=== PATIENT | female | born 2000 | race Caucasian/White ===

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

== ENCOUNTER → 2020-03-01 09:46 | Outpatient (CLI) | payer OTHER, SELFPAY | PROVIDERS: PCP Pediatrics; Referring Provider Pediatrics; Visit Provider Pediatrics | DX: Z20.828 Contact with and (suspected) exposure to other viral communicable diseases (principal); J02.9 Acute pharyngitis, unspecified | CPT/HCPCS: 87635; 94799; U0003 ==

== ENCOUNTER 2022-04-22 08:00 | Outpatient (RCR) | payer OTHER, SELFPAY ==
--- NOTE | 2022-04-22 09:05 | BH.SGPN.GN ---
Behaviors/Verbalizations/Mental Status: []Pt alert and oriented, neatly dressed and groomed. Eye contact good. Motor activity appropriate. Speech within normal limits. Affect constricted, mood anxious. Thoughts linear, logical, no signs of hallucinations or delusions. Reviewed pt?s symptom tracker, no risk for suicidal ideation, plan, or intent as of 04/22/22 Client Response/Progress/Benefit: []Pt responded well to session, providing feedback. Pt reports feeling nervous this morning as it is her first day of IOP tx. Pt shared being in group is both a win and a stressor as pt wants to work on reducing her anxiety and getting back into her daily functioning. Pt shared she also wants to improve her boundary setting and increase confidence. Pt receptive of support from peers and encouragement about IOP. Pt appeared to benefit from connecting with peers. Pt will continue IOP tx to prevent decompensation, gain healthy coping skills, and improve daily functioning. Narrative Note: []
--- NOTE | 2022-04-22 10:10 | BH.SGPN.GN ---
Behaviors/Verbalizations/Mental Status: [] Eye contact is good. Motor activity is appropriate. Appearance is casual. Speech is Appropriate. Mood is anxious. Affect is congruent. Thoughts are linear and logical. No evidence of psychosis. Client Response/Progress/Benefit: [] Pt participated when prompted. Attentive during psychoeducation AEB note-taking. Attentive during interactive discussion amongst peers on the definition and examples of crisis. Attentive as peers identified unhealthy responses to crisis which included; substance use, avoidance, isolation, sleeping, risky behaviors, retail therapy, over-eating, etc. Pt identified her snehal signs to crisis as well. Benefited from increased of crisis and personal warning signs. Will continue in IOP to prevent decompensation, increase healthy coping, and improve functioning. Narrative Note: []
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
--- NOTE | 2022-04-22 11:10 | BH.SGPN.GN ---
Behaviors/Verbalizations/Mental Status: []Pt alert and oriented, casually dressed and appropriately groomed. Eye contact good. Motor activity appropriate. Speech within normal limits. Affect constricted, mood anxious. Thoughts linear, logical, no signs of hallucinations or delusions. Client Response/Progress/Benefit: []Pt responded well to session as evidenced by Pt listening attentively to others and providing strategies during discussion.? Pt identified personal warning signs for crisis and gained further awareness of earliest warning signs. Pt created a crisis action plan to help better manage warning signs for crisis. Pt able to create action plan for warning sign of irritability. Pt's action plan included: going back to see why she's irritable, breathing, self-care, and communicate to supports how she is feeling. Pt appeared to benefit from creating a crisis action plan and increasing self-awareness. Pt will continue IOP tx to improve emotion regulation, increase healthy coping and prevent decompensation.
[2022-04-22 12:03] VITALS: BP 127/74; PULSE 60
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
--- NOTE | 2022-04-22 12:32 | BH.DR.ITP ---
Initial Treatment Plan Patient Information Visit Information: ADMISSION DATE: EXPECTED LOS: 4-6 weeks Problems/Symptoms Problem #1:: Depression Symptom:: Sadness, worthlessness, hopelessness, hypersomnia, low energy, fatigue, decreased concentration, passive thoughts of , fleeting passive suicidal ideation, recent self-harm Problem #2:: Anxiety Symptom:: Worry, rumination, panic attacks, avoidance
--- NOTE | 2022-04-23 09:00 | BH.SGPN.GN ---
Behaviors/Verbalizations/Mental Status: [] Pt eye contact good, casually dressed, motor activity appropriate, speech normal rate and tone, mood euthymic, congruent affect, thoughts linear and intact, no evidence of delusions or hallucinations. Patient's symptom tracker does not indicate any suicidal ideation, plan, or intent. Client Response/Progress/Benefit: []Pt responded well to session AEB listening attentively to others and sharing thoughts and feelings. Patient reported mental positive as a new album for Batsheva Rosas was released today which has been helpful to improve her mood. Client identified additional mental positive as having less stress at work due to managing her emotions and thoughts more effectively. Client stated current stressor is having to take care of the animals at her aunt and uncle's house because they are on vacation. Seemed to benefit from support from peers. Client to continue IOP to continue using skills to manage anxiety, challenge negative thought patterns, and prevent decompensation. Narrative Note: []
--- NOTE | 2022-04-23 10:05 | BH.SGPN.GN ---
Behaviors/Verbalizations/Mental Status: []Pt alert and oriented, casually dressed and groomed. Eye contact good. Motor activity appropriate. Speech within normal limits. Affect constricted, mood anxious. Thoughts linear, logical, no signs of hallucinations or delusions. Client Response/Progress/Benefit: []Pt new to IOP tx. Participated during the group discussion and remaining attentive during psychoeducation. Participated in experiential activity. Pt remaining attentive during interactive discussion on the consequences of unhealthy expression of emotions.? Worked with group to identify several consequences which included pushing people away, ?exploding,? and not getting needs met. Contributing during interactive discussion on common potholes to effectively communicating. Pt identified personal ones such as communicating emotions over text. Pt was able to relate and make connections between the experiential activity and the overall topic, reported experiencing anxiety and excitement, but managing it well. Benefited from increased awareness of how stress and emotions can impact one's ability to communicate. Will continue in IOP to manage sx of anxiety, continue to improve overall functioning, and prevent decompensation. Narrative Note: []
--- NOTE | 2022-04-23 13:47 | BH.MTP ---
Master Treatment Plan - Patient Information Program Physician:: Dr. Hutchinson Primary Therapist:: Karolina Duggan, [facility] - Psychiatric Diagnoses Psychiatric Diagnoses:: 1. Major depressive disorder, recurrent, severe without psychosis (F33.2). 2. Generalized anxiety disorder. 3. ADHD Diagnosis Code(s):: F33.2 - Estimated LOS Estimated LOS (in weeks):: 6 Problem/Goal #1 - Problem/Goal #1 Stated Goal:: Client will decrease depressive symptoms, isolation, and agitation due to Major Depressive Disorder through Intensive Outpatient Program. Description of Barriers: Potential barriers to treatment include negative thinking, high expectations of self, distorted thoughts, and social anxiety. Functional Impact: The patient is a 21-year-old single female with a history of depression, anxiety, PTSD and ADHD who referred herself to the [facility] behavioral health IOP program for worsening symptoms of anxiety and depression. She wants to get FMLA off from her job so she can participate more fully in the IOP program. Endorses significant social anxiety which makes it difficult to go in public and or talk to others. Endorses depressed mood with crying episodes, anhedonia, increased sleep, low energy, decreased concentration, and feelings of hopelessness and worthlessness. Hx of self-harm, last cut one month ago. MH symptoms were interfering with pt?s ability to get to work on time. - Objectives Objective #1 Stated Objective: Client will learn and utilize 2-3 healthy coping strategies to manage depressive symptoms. Interventions: Therapist will utilize CBT techniques to assist client with understanding the connection between thoughts, feelings and behaviors. Education will be provided on behavioral activation. Therapist will assist client in learning internal coping strategies to manage depressive symptoms, along with helping client identify triggers. Discharge Criteria: Client will have achieved this goal when can verbalize and has practiced at least 2 healthy coping strategies that successfully manage depressive symptoms. Target Date: 06/03/22 Review Date: 05/13/22 Objective #2 Stated Objective: Pt will decrease depressive symptoms AEB pt?s score on the DSM 5 cross-cutting measure and improve pt?s daily functioning. Interventions: Through groups and individual therapy, pt will be provided with education on cognitive distortions, mistaken beliefs, and identifying and combating negative self-talk. Therapist will assist pt with getting back into the activities she once enjoyed as well as increasing healthy coping strategies. Discharge Criteria: Pt will have met this goal when pt?s score on the DSM 5 cross cutting measure for depression has been decreased and per pt?s report daily functioning has improved. Target Date: 06/03/22 Review Date: 05/13/22 Problem/Goal #2 - Problem/Goal #2 Stated Goal:: Client will reduce overall frequency, intensity, and duration of the anxiety so that daily functioning is not impaired.? Description of Barriers: Potential barriers to treatment include negative thinking, high expectations of self, distorted thoughts, and social anxiety. Functional Impact: The patient is a 21-year-old single female with a history of depression, anxiety, PTSD and ADHD who referred herself to the [facility] behavioral health IOP program for worsening symptoms of anxiety and depression. She wants to get FMLA off from her job so she can participate more fully in the IOP program. Endorses significant social anxiety which makes it difficult to go in public and or talk to others. Endorses depressed mood with crying episodes, anhedonia, increased sleep, low energy, decreased concentration, and feelings of hopelessness and worthlessness. Hx of self-harm, last cut one month ago. MH symptoms were interfering with pt?s ability to get to work on time. - Objectives Objective #1 Stated Objective: Client will learn and implement 2-3 calming skills to reduce overall anxiety and manage anxiety symptoms. Interventions: Therapist and group sessions will help client identify physiological warning signs of anxiety, increase awareness of thoughts that increase anxiety, and identify behaviors that reinforce anxious symptoms. Group and individual counseling will teach client calming skills to help manage anxious symptoms. Discharge Criteria: Client will have achieved this goal when can verbalize at least 2 calming skills and reports skills successfully help reduce anxious symptoms. Target Date: 06/03/22 Review Date: 05/13/22 Objective #2 Stated Objective: Pt will decrease anxious symptoms AEB pt?s score on the DSM 5 cross-cutting measure improve pt?s daily functioning. Interventions: Through groups and individual therapy, pt will be provided education about anxiety?s impact on body and common physiological reaction to anxiety. Therapist will teach pt appropriate breathing techniques and build healthy coping skills to manage daily anxieties. Discharge Criteria: Pt will have met this goal when pt?s score on the DSM 5 cross cutting measure for anxiety has been decreased and per pt?s report daily functioning has improved. Target Date: 06/03/22 Review Date: 05/13/22
--- NOTE | 2022-04-23 14:20 | BH.MDN ---
Multi-Disciplinary Note - Note 45-min Individual Time Started:: 11:10 Date: 04/23/22 Purpose of session/treatment goals addressed:: Purpose of session was to identify current symptoms and stressors and gathering background information. Additional focus on identifying treatment goals for [facility]. Eye Contact:: Good Motor Activity:: Restless Appearance:: Casual Speech:: Appropriate Mood:: Anxious Affect:: Congruent Thoughts:: Linear, Logical, No evidence of hallucinations/delusions noted Staff Interventions:: CBT techniques, rapport building, strengths perspective, treatment planning, goal setting Client Response:: Client responded well to session AEB openly sharing thoughts and feelings. Client reported in October 2021 she wanted to go back to counseling because was struggling with depressed symptoms. Stated she was having difficulty getting to work and was showing up late. Client shared she found out her previous counseling had moved away. Client stated she put off getting treatment since her previous counselor was gone. Client stated her mental health did not get better while she put off therapy. Client reported depressed and anxiety continued to worsen and has accumulated enough points for tardiness at work that one more point will result in her termination from her job. Client stated she chose to get help at [facility] so she could improve functioning and maintain her job. Client reported while in [facility] she would like to work on mood regulation and social anxiety. Client stated she will often jump to fight/flight which results in her responding impulsively to situations. Client reported while at work she will become overwhelmed and start crying. Reported she has a hard time regulating emotions at work when her position gets changed for a certain shift because she struggles when her routine/structure is messed up. Connected with therapist psychoeducation about impact of trauma which could have led to client seeking control through schedules/routines as a child. Client reported she as always struggled with social anxiety and finds it crippling. Client reported she can't go to big stores, has difficulty ordering food out to eat and has fear of other's judgement. Reported she would like to learn better ways to manage her emotions to decrease anxiety and anger responses. Client reported also wants to learn more effective ways to manage depressed symptoms. Connected with psychoeducation about cognitive triangle. Client stated she can connect how her thoughts, feelings and behavior are interconnected. Reported would like to work on being more mindful about her thought patterns. Risks/Concerns:: Denies current suicidal/homicidal ideation, plan or intention to date. Progress Toward Goals/Plan:: No progress observed, second day in IOP. Client to continue IOP to improve daily functioning, improve emotion regulation and prevent decompensation. Time Stopped:: 12:00
--- NOTE | 2022-04-24 09:05 | BH.SGPN.GN ---
Behaviors/Verbalizations/Mental Status: []Eye contact good, casually dressed, motor activity appropriate, speech normal rate and tone, mood dysthymic and anxious, congruent affect, thoughts linear and intact, no evidence of delusions or hallucinations. Reviewed pt's symptom tracker, denies suicidal ideation, plan, or intent as of this date 04/24/22. Client Response/Progress/Benefit: []Pt responded well to session, attentive and providing supportive feedback at times throughout. Pt reports feeling tired but content this morning. Identified mental health ?wins? as making it through the first day of attending group and work in the same day. Noted using positive self-talk and perspective challenging to help in doing so. Additional win is practicing self-care via listening to the new [employer] album she has been looking forward to. Pt expressed music often improved her mood. Shared current stressor is being home alone while her aunt and uncle are out of town. Receptive of and appearing to benefit from supportive feedback and suggestions from the group on managing anxiety related to being home alone. Pt to continue IOP tx to improve anxiety management skills, reduce negative thinking, and further improve mood stability. Narrative Note: []
--- NOTE | 2022-04-24 10:20 | BH.SGPN.GN ---
Behaviors/Verbalizations/Mental Status: []Pt alert and oriented, neatly dressed and groomed. Eye contact good. Motor activity appropriate. Speech within normal limits. Affect congruent, mood euthymic and anxious. Thoughts linear, logical, no signs of hallucinations or delusions. Client Response/Progress/Benefit: []Pt was an active?participant in group discussion. Group worked together to identify benefits of healthy relationships which include; improves mental health, encouragement, motivation, accountability, validation, connection, and comfort in sharing things. Group identified factors that lead to unhealthy relationships which included; co-dependence, gaslighting, not addressing issues, name-calling, and not setting boundaries.?Pt?s personal factors were isolating and not reaching out.?Actively participated in group experiential activity and expressed ideas to group. Benefited from increased insight and awareness of benefits of healthy relationships and factors that contribute to unhealthy relationships. Will continue in IOP tx to prevent decompensation, increase distress tolerance, and improve daily functioning. Narrative Note: []
--- NOTE | 2022-04-29 09:05 | BH.SGPN.GN ---
Behaviors/Verbalizations/Mental Status: [] Eye contact is good. Motor activity is appropriate. Appearance is casual. Speech is Appropriate. Mood is euthymic. Affect is full. Thoughts are linear and logical. No evidence of psychosis. Reviewed daily check in sheet and pt reports 1/5 for suicidal thoughts and 0/5 for intent. Client Response/Progress/Benefit: [] Pt was an active participant in group discussions. Attentive. Daily symptom tracker notes 3/5 for anxiety. SI1. Mental health win was ?good week at work?. She believes that she has been managing her depression well this week however has noticed that her anxiety has increased. Changes at work appears to be primary trigger to this. Discussed how her anxiety has impacted her functioning. Emotion for today is tired. Benefited from group support, encouragement, and feedback. Will continue in IOP to stabilize mood, increase healthy coping, and prevent decompensation. Narrative Note: []
--- NOTE | 2022-04-29 14:33 | BH.MDN_ITS ---
Multi-Disciplinary Note - Note 45-min Individual Time Started:: 10:55 Date: 04/29/22 Purpose of session/treatment goals addressed:: Purpose of session was to address goals 1 and 2 from [facility]. Eye Contact:: Good Motor Activity:: Appropriate Appearance:: Casual Speech:: Appropriate Mood:: Euthymic Affect:: Congruent Thoughts:: Linear, Logical, No evidence of hallucinations/delusions noted Staff Interventions:: thought challenging, psychoeducation on: - progressive muscle relaxation and guided meditation., CBT techniques, mindfulness skills, rapport building, strengths perspective, taught coping skills - progressive muscle relaxation and guided meditation. Client Response:: Client reported her work week went well because she didn't get pulled from her main job at work. Client stated she also believes going into work with a positive attitude was helpful. Client stated she is starting to realized in the past she would be thinking negatively before she would get to work which directly impacted the way her shift would go. Client reported during one of her shifts she had to give up some control by allowing two co-workers take care of a situation that she would hav eusually tried to do all by herself. Client reported trying to not do everything decreased her frustration and helped her get out off work on time. With assistance from therapist recognzies if she continues to step in and do difficult things for others then they can't learn how to do new tasks. Client stated she is starting to see giving up some control can lead to decreased stress for her. Client stated she has been practicing the belly breathing and grounding tools taught from last session. Client reported she tried to use the skills prior to bed when anxious and found the skills a little helpful. Stated she will practice those skills throughout the day. Responded well to psychoeducation about progressive muscle relaxation and guided meditation as skills that could help with sleep. Agreeable to practice skills. Risks/Concerns:: Denies current suicidal/homicidal ideation, plan or intention to date. Progress Toward Goals/Plan:: Progress noted with client reporting challenging perspective prior to getting to work to improve mood and attitude. Client starting to practice healthy coping skills outside treatment environment. Client states struggling with getting to sleep at night due to anxiety. Plan is for client to continue IOP to continue to improve emotion regulation, challenge distorted thoughts and prevent decompensation. Time Stopped:: 11:40
--- NOTE | 2022-04-30 10:10 | BH.SGPN.GN ---
Behaviors/Verbalizations/Mental Status: []Pt alert and oriented, casually dressed and groomed. Eye contact good. Motor activity appropriate. Speech within normal limits. Affect constricted, mood euthymic. Thoughts linear, logical, no signs of hallucinations or delusions. Client Response/Progress/Benefit: []Pt responded well to session AEB contributing to discussion, taking notes, and listening attentively to others. Group discussed the benefits of managed anger and anger as a secondary emotion. Pt shared perspective on negatives from acting out in anger as stress and more mental health issues.? Pt completed worksheet on anger triggers and personal warning signs of anger. Pt identified her biggest triggers as changes in her plans, not being able to communicate, and having to repeating things over and over. Appeared to benefit from increased knowledge of the anger cycle as well as personal triggers. Will continue IOP tx to reduce anxiety, improve overall functioning, and combat distortions. Narrative Note: []
--- NOTE | 2022-04-30 11:10 | BH.SGPN.GN ---
Behaviors/Verbalizations/Mental Status: []Client alert and oriented, casually dressed and groomed. Eye contact good. Motor activity appropriate. Speech within normal limits. Affect congruent, mood euthymic. Thoughts linear, logical, no signs of hallucinations or delusions. Client Response/Progress/Benefit: []Pt was engaged throughout AEB contributing to group discussion and self-reflection. Group finished processing cues to anger worksheet. Pt identified behavioral cues to anger include: crying, yelling, avoiding, panic, shutting down, and trying to take control of situations. Pt contributed as group brainstormed healthy coping skills for better managing anger which included: music, walking/exercise, changing the environment, communicating with supports, and journaling. Pt appeared to benefit from identifying different techniques to manage anger as well as gaining awareness of potential consequences of unmanaged anger. Will continue IOP tx to decrease anxiety, improve emotion regulation, and prevent decompensation.
--- NOTE | 2022-05-01 09:05 | BH.SGPN.GN ---
Behaviors/Verbalizations/Mental Status: []Eye contact good, casually dressed, motor activity appropriate, speech normal rate and tone, mood euthymic, congruent affect, thoughts linear and intact, no evidence of delusions or hallucinations. Reviewed pt's symptom tracker pt denies any SI plan, or intent as of this date 05/01/22. Client Response/Progress/Benefit: [] Pt responded well to session, attentive and engaged. Pt reports feeling eager this morning as pt has plans with friends this weekend. Pt shared she had to use healthy coping skills because pt's plans changed which triggered some panic and anxiety. Pt stated in the past a change in plans would have led to significant emotional dysregulation. Pt stated she actually looking forward to doing something new. Pt's stressor today is that she called off work to hang out with her friends which is making pt feel a little guilty. Pt appeared to benefit from reflecting on her application of coping skills. Pt will continue IOP tx to promote mood stability, improve emotional regulation skills, and increase distress tolerance skills. Narrative Note: []
--- NOTE | 2022-05-01 11:10 | BH.SGPN.GN ---
Behaviors/Verbalizations/Mental Status: []Pt alert and oriented, casually dressed and groomed. Eye contact good. Motor activity appropriate. Speech within normal limits. Affect full, mood euthymic. Thoughts linear, logical, no signs of hallucinations or delusions. Client Response/Progress/Benefit: []Pt was an active participant in group discussion. Attentive during psychoeducation on the Zones of Change which included the comfort zone, learning zone, and danger zone. Pt along with peers participated in interactive discussion regarding behaviors, thoughts, and feelings associated with each zone. Participated in group activity in which they developed a plan to take action on something they wished to change. Pt chose to take action on letting go of control in which pt identified a SMART goal is every trusting co-workers to handle extra tasks when she is busy Identified supports that pt needed as mindfulness, thought challenge, saying no, and holding co-workers accountable. Benefited from increased self-aware of zones of change and developing an action plan. Will continue in IOP to increase confidence, challenge distortions, and prevent decompensation.
== END 2022-05-04 23:59 ==
LOC: BHIOP 08:00
PROVIDERS: PCP Pediatrics; Referring Provider Psychiatry & Neurology Psychiatry; Visit Provider Psychiatry & Neurology Psychiatry
DX: F33.2 Major depressive disorder, recurrent severe without psychotic features (principal); F41.1 Generalized anxiety disorder; F90.9 Attention-deficit hyperactivity disorder, unspecified type
CPT/HCPCS: S9480; 90834; 90853

== ENCOUNTER 2022-05-05 08:11 | Outpatient (RCR) | payer OTHER, SELFPAY ==
[2022-05-05 00:44] VITALS: BP 127/74; PULSE 60
--- NOTE | 2022-05-06 09:00 | BH.SGPN.GN ---
Behaviors/Verbalizations/Mental Status: []Pt eye contact good, casually dressed, motor activity appropriate, speech normal rate and tone, mood dysthymic, constricted affect, thoughts linear and intact, no evidence of delusions or hallucinations. Client Response/Progress/Benefit: []Pt responded well to session AEB pt listening attentively to others and sharing thoughts and feelings with group. Pt reported mental health positive as able to have a great time with her friends at [facility] over the weekend. Pt stated additional positive as her friends will be visiting her in a couple weeks. Pt reported stressor as mood feeling off at the start of the week. Pt stated she didn't want to wake up this morning to attend IOP, however did use opposite action to make it today. Pt reported she realizes this is a win because she would've felt worse all day if she chose to cancel IOP. Seemed to benefit from support from peers. Pt to continue IOP to challenge distorted thoughts, continue use of healthy coping skills and prevent decompensation. Narrative Note: []
--- NOTE | 2022-05-06 10:08 | BH.SGPN.GN ---
Behaviors/Verbalizations/Mental Status: []Client alert and oriented, casually dressed and groomed. Eye contact fair to good. Motor activity appropriate. Speech within normal limits. Affect congruent, mood anxious and depressed. Thoughts linear, logical, no signs of hallucinations or delusions. Client Response/Progress/Benefit: []Client responded well to session AEB sharing at times and listening attentively to others. Client provided examples of benefits of having social support. Client also participated in group discussion regarding the different kinds of supports in our safety net and the things that weaken or prevent us from using our supports. Client identified agreeing with others that fear of being a burden as something that may weaken one?s support net. Client participated in experiential activity illustrating the importance of having multiple social supports. Client provided supportive feedback and problem solving throughout group activity. Client participated in group processing of the activity. Client appeared to benefit from increased knowledge of the benefits of social support and greater self-awareness. Will continue IOP treatment to continue increasing self-esteem, decrease anxious thought pattern, and improve overall functioning. Narrative Note: []
--- NOTE | 2022-05-06 12:21 | PCM.BH.PN_ITS ---
Progress Note Progress Note: History of Present Illness/Interim History: [] The patient is a 21-year-old female with a history of depression, anxiety and PTSD who is seen in follow-up at the [facility] behavioral health IOP program. I last saw the patient 2 weeks ago and at that time Prozac 10 mg daily was started. Patient states she has been taking it for about 2 weeks and is tolerating it well. She had some initial insomnia when she for started taking it but that has resolved and she is feeling good on it now. She feels that her depression may be a little better. She is still somewhat depressed but she is feels much less worthless than she did before. She has much less periods of feeling hopeless than before. Her sleep has improved in regularity and she is sleeping about 10 hours a day now and is keeping regular sleep-wake hours. Her neck energy level during the day is now normal possibly due to her better sleep schedule. She denies any passive thoughts that she would not care if she . She denies any suicidal ideation whatsoever now. She has not done any cutting since 6 weeks ago. She feels that she is enjoying the IOP program and is learning valuable skills to help manage her mental health issues. She is at work and is functioning well at work. She denies also active suicidal ideation, homicidal ideation, plan for suicide, hallucinations or delusions. Current Psychiatric Medications: [] Prozac 10 mg p.o. daily (x2 weeks); Adderall Exar 25 mg p.o. every morning Mental Status Examination: [] The patient is a 21-year-old female who is seen wearing a mask due to the pandemic and is casually dressed and groomed with good hygiene. She has good eye contact and is ambulatory with a normal gait. She has no psychomotor agitation or retardation. She is cooperative and pleasant during the interview. Eye contact is good and speech is normal rate and rhythm and fluent with no pressure. Mood is depressed. Affect is mildly constricted with occasional brightness. Thought process is goal-directed and organized. Thought content: There is no evidence of passive thoughts of , passive or active suicidal ideation, plan for suicide, homicidal ideation, hallucinations or delusions. Reality testing is intact. Judgment is intact. Impulsivity is moderate. Insight is limited but improving. Diagnoses: [] 1. Major depressive disorder, recurrent, severe without psychosis 2. Generalized anxiety disorder 3. ADHD 4. Primary support and school issues Plan: [] The patient will continue the IOP program at [facility] as the structure, support, education and group therapy will hopefully prevent worsening of the patient's symptoms. She felt safe during the interview and if it anytime she does not feel safe she will let us know or go to the emergency room. The risks, options, possible complications and side effects of the medication were discussed with the patient and she understands and accepts these. No medication dosage changes were made today and she will continue the current medication regimen. Prescription is sent in for a refill on the Prozac 10 mg p.o. daily. I will see the patient in follow-up in 2 to 3 weeks and the patient will continue to follow-up with her outpatient providers.
--- NOTE | 2022-05-07 14:58 | BH.COMM ---
Communication Note - Communication with Client Communication Note: Client cancelled IOP for remainder of week due to being positive for covid. Client stated will return next Wednesday-Wednesday if she is feeling better.
--- NOTE | 2022-05-07 15:40 | BH.TPR ---
Treatment Plan Review Date of Admission:: 04/22/22 Date of Treatment Plan Review:: 05/07/22 Admitting Diagnoses:: 1. Major depressive disorder, recurrent, severe without psychosis (F33.2). 2. Generalized anxiety disorder. 3. ADHD Current Diagnoses:: 1. Major depressive disorder, recurrent, severe without psychosis (F33.2). 2. Generalized anxiety disorder. 3. ADHD Patient's Response to Treatment:: Pt responding well to treatment AEB consistent attendance, contributions to group discussions, and engaged in individual sessions. Status of Current Problems and Symptoms: Pt showing treatment progress with improved ability to manage changes while at work. Pt has been adjusting her perspective towards each day which has positively impacted her mood. Pt stated she notices when she has a positive perspective her day things go better. Pt recently reported her mood is off this week. Pt stated noticed recent decline in motivation, but has been able to use opposite action. Problem #1 Problem Name:: Depression Status of Goals:: Obj 1 - Goal met, ongoing work encouraged. Client reports using opposite action, challenging negative thoughts, and socializing as skills to manage depressed symptoms. Obj 2 - met, ongoing work encouraged. Per pt's DSM 5 cross cutting scores at review, pt's scores indicate a 50% decrease in depression. Team Recommendations:: Team recommends continued work on current goals and objectives to reinforce skills and allow time for pt to show consistent progress. Problem #2 Problem Name:: Anxiety Status of Goals:: Obj 1 - Goal met, ongoing work encouraged. Client identifies using belly breathing, grounding, and guided meditation. Struggles with consistent use of skills. Obj 2 - met, ongoing work encouraged. Per pt's DSM 5 cross cutting scores at review, pt's scores indicate a 45% decrease in depression. Team Recommendations:: Team recommends continued work on current goals and objectives to reinforce skills and allow time for pt to show consistent progress.
--- NOTE | 2022-05-13 09:05 | BH.SGPN.GN ---
Behaviors/Verbalizations/Mental Status: [] Eye contact is good. Motor activity is appropriate. Appearance is casual. Speech is Appropriate. Mood is euthymic. Affect is full. Thoughts are linear and logical. No evidence of psychosis. Reviewed daily check in sheet and no reports of suicidal ideations or intent. Client Response/Progress/Benefit: [] Pt was an active participant in group discussion. Attentive. Emotion for today is contentish. Daily symptom tracker notes 2/5 for anxiety and depression. Shared stressful events from yesterday and the skills that she used to help manage which included thought reframing and challenging cognitive distortions. Able t point out when she was predicting the future and changes her automatic thoughts which in-turn decreased the severity of her anxiety which improved her functioning. Benefited from group support, encouragement, and feedback. Will continue in IOP to prevent decompensation, increase healthy coping, and decrease anxiety. Narrative Note: []
--- NOTE | 2022-05-13 10:12 | BH.SGPN.GN ---
Behaviors/Verbalizations/Mental Status: []Eye contact is good. Motor activity is appropriate. Appearance is casual and grooming tended to. Speech is Appropriate. Mood is euthymic and anxious. Affect is congruent. Thoughts are linear and logical. No evidence of psychosis Client Response/Progress/Benefit: [] Client receptive of session, actively engaged throughout AEB taking notes and provided input and examples to discussion. Appeared to connect with group topic of cognitive distortions and the impact of thought patterns on mental health, coping behaviors, and relationships. Reflected that she personally tends to struggle with distortions of catastrophizing, should?/musts, personalization, and emotional reasoning. Shared examples of past personalization thoughts and how these have led to self-deprecating. Client appeared to benefit from gaining insight on distorted thinking patterns and how this impacts overall mental health. Progress noted in client report of improved insight into own distorted thinking patterns and ability to recognize it?s impacts on mental health. Will continue IOP tx to improve mood stability, reduce anxiety, promote healthy coping, and prevent decompensation. Narrative Note: []
--- NOTE | 2022-05-14 09:00 | BH.SGPN.GN ---
Behaviors/Verbalizations/Mental Status: [] Eye contact is good. Motor activity is appropriate. Appearance is casual. Speech is rapid. Mood is anxious. Affect is congruent. Thoughts are linear and logical. No evidence of psychosis. Reviewed daily check in sheet and no reports of suicidal ideations or intent. Client Response/Progress/Benefit: [] Pt was an active participant in group discussions. Attentive. Emotion for today is ?rushed?. Daily symptom tracker notes 2/5 for anxiety and depression. Feels rushed this AM due to several commitments which are not her ?normal routine?. She elaborated on how these small changes can impact her mentally and lead to anxiety, panic, and overwhelming stress. Group provided feedback regarding managing change which was beneficial. Insight that she more at risk for overwhelming thoughts and emotions this AM and the importance of skills and self-care. Will continue in IOP to prevent decompensation, increase healthy coping, and stabilize mood. Narrative Note: []
--- NOTE | 2022-05-14 10:10 | BH.SGPN.GN ---
Behaviors/Verbalizations/Mental Status: [] Client alert and oriented, casually dressed and groomed. Eye contact good. Motor activity appropriate. Speech within normal limits. Affect congruent, mood euythmic. Thoughts linear, logical, no signs of hallucinations or delusions Client Response/Progress/Benefit: [] Client responded well to session AEB sharing and listening attentively to others. Client was engaged throughout group discussion defining fixed mindset and what it can look like. Group identified several aspects of fixed mindset which included; negative outlook, fear of failing, absolute thinking, and inability to grow your intelligence. Group discussed how fixed mindset affects mental health and why we use fixed thoughts. Client participated in experiential activity encouraging client to find solutions to a seemingly impossible task. Client identified personal fixed thoughts in session which included I cant do this because I don't know how too and I failed once, so I'll fail again.? Client gained insight to how these fixed thoughts reduce motivation and keep client stuck in unhealthy cycles. Client appeared to benefit from increased knowledge of fixed mindset and self-awareness of personal fixed thoughts. Will continue IOP treatment to reduce negative self-talk, increase positive coping skills, and increase distress tolerance skills. Narrative Note: []
--- NOTE | 2022-05-14 11:10 | BH.SGPN.GN ---
Behaviors/Verbalizations/Mental Status: [] Client alert and oriented, casually dressed and groomed. Eye contact good. Motor activity appropriate. Speech within normal limits. Affect congruent, mood euthymic Thoughts linear, logical, no signs of hallucinations or delusions. Client Response/Progress/Benefit: [ ] Client engaged during activity and discussion AEB providing some input, connecting with peers, as well as taking notes throughout. Client did well to engage as group worked on identifying characteristics and benefits of adopting a growth mindset. Worked with fellow participants in reframing the example fixed thoughts into growth mindset thoughts. Reframed personal fixed thought of ?I failed once, so I'll fail again? with growth mindset thought of ?Failure doesn't determine ability, I can always try again? Benefitted from discussing benefits of growth mindset and brainstorming strategies for prompting growth-mindset. Will continue IOP tx to reduce cognitive distortions, increase self care, and increase self esteem. Narrative Note: [] Narrative Note: []
--- NOTE | 2022-05-15 09:10 | BH.SGPN.GN ---
Behaviors/Verbalizations/Mental Status: [] Eye contact is good. Motor activity is appropriate. Appearance is casual. Speech is Appropriate. Mood is euthymic. Affect is full. Thoughts are linear and logical. No evidence of psychosis. Reviewed daily check in sheet and no reports of suicidal ideations or intent. Client Response/Progress/Benefit: [] Pt was an active participant in group discussions. Attentive during video and discussion on education on CBT. Daily symptom tracker notes 08/09 for depression and anxiety. Pt has plans this weekend which she is looking forward too which has been beneficial to her mental health. Despite anxiety and guilt, she is going to take a day of work. Shared how self-care and setting boundaries with work is a challenge for her. Overall believes that she has been managing her mental health well this week. Shared that she ran out of her ADHD medication due to missing an appointment with her outpatient psychiatrist. She is unsure if not having the medication is due to national shortage or missing her appointment. She has appointment early next week to clarify this issue. Benefited from group support, encouragement, and feedback. Will continue in IOP to prevent decompensation, increase healthy coping, and stabilize mood. Narrative Note: []
--- NOTE | 2022-05-15 10:15 | BH.SGPN.GN ---
Behaviors/Verbalizations/Mental Status: [ ] Client alert and oriented, casually dressed and groomed. Eye contact good. Motor activity appropriate. Speech increased. Affect congruent, mood euthymic and excitable. Thoughts linear, logical, no signs of hallucinations or delusions. Client Response/Progress/Benefit: [] Client was an active participant AEB contributing to discussion, taking notes, and engaging in group activity. Connected with the topic of pitfalls and listened to group discussion on barriers that prevent from choosing a healthier path to mental wellness. Group worked together to identify examples of personal pitfalls which included; anger, shutting down, drug use, unhealthy coping, denial, distortions, and self sabotage. Client identified emotional dysregulation and need for control as a personal pitfalls that have inhibited progress in the past. Client benefited from group as client learned to better identify potential barriers to improving mental health symptoms. Client will continue IOP tx to combat cogntive distortions, gain healthy supports, and improve daily functioning. Narrative Note: []
--- NOTE | 2022-05-15 11:15 | BH.SGPN.GN ---
Behaviors/Verbalizations/Mental Status: [] Client alert and oriented, casually dressed and groomed. Eye contact good. Motor activity appropriate. Speech increased. Affect congruent, mood euthymic and excitable. Thoughts linear, logical, no signs of hallucinations or delusions. Client Response/Progress/Benefit: [] Client receptive of session, engaged throughout AEB client actively listening and actively contributing to discussion, as well as taking notes. Client participated in the experiential activity and did well to communicate ideas with peers and manage emotions. Client attentive as group processed how the emotions and perspective of the group impacted the activity. Group worked together to identify different coping skills to help manage pitfalls. Client identified pitfalls they struggle with are emotional dysregulation and need for control. Client plans to work on the pitfalls by focusing on what she can control vs not and utilizing grounding techniques. Benefited from identifying personal pitfalls and strategies to overcome these pitfalls. Will continue IOP tx to increase emotion regulation skills, combat cognitive distortions, and increase the use of healthy coping skills. Narrative Note: []
--- NOTE | 2022-05-20 09:57 | BH.COMM_ITS ---
Communication Note - Communication with Client Communication Note: Client no showed/no called for group today. This scientific technical writer left voicemail for client asking her to return call.
--- NOTE | 2022-05-20 09:57 | BH.COMM ---
Communication Note - Communication with Client Communication Note: Client no showed/no called for group today. This public relations writer left voicemail for client asking her to return call.
--- NOTE | 2022-05-21 10:10 | BH.SGPN.GN ---
Behaviors/Verbalizations/Mental Status: []Pt alert and oriented, casually dressed and appropriately groomed. Eye contact good. Motor activity appropriate. Speech within normal limits. Affect congruent, mood euthymic. Thoughts linear, logical, no signs of hallucinations or delusions. Client Response/Progress/Benefit: []Pt was an engaged participant AEB providing input, listening to others, and taking notes. Participated in interactive group discussion on internal and external barriers to mental health progress. Pt described current reality as starting to learn healthier ways to manage symptoms and stressors but still struggling with feeling lost and fear of the future. Reported desired reality is feeling more confident that she can manage life stressors and having more tools available to manage symptoms and daily life more effectively.. Client shared personal barriers to desired realty include: blaming others, lack of motivation, unrealistic expectations, feeling guilty, and staying in bed.. Benefited from increased awareness of current barriers to progress as well as current/desired realities. Pt to continue IOP to challenge negative thoughts, continue use of healthy coping and prevent decompensation.
--- NOTE | 2022-05-22 09:58 | BH.COMM_ITS ---
Communication Note - Communication with Client Communication Note: Client no showed/no called for group today. This real estate underwriter left voicemail for client asking her to return call.
--- NOTE | 2022-05-22 09:58 | BH.COMM ---
Communication Note - Communication with Client Communication Note: Client no showed/no called for group today. This fiction and nonfiction writer prose left voicemail for client asking her to return call.
--- NOTE | 2022-05-22 11:19 | BH.SGPN.GN ---
Behaviors/Verbalizations/Mental Status: []Pt alert and oriented, casual appearance. Eye contact good. Motor activity appropriate. Speech within normal limits. Affect congruent, mood euthymic. Thoughts linear, logical, no signs of hallucinations or delusions. Client Response/Progress/Benefit: []Pt engaged in session AEB pt listening attentively to peers, taking notes, and providing input. Attentive during psychoeducation on 4 zones of regulation. Pt able to identify feelings and behaviors pt exhibits for each zone.? Pt identified coping skills one can use to support self in each zone. Pt stated belief that pt is in the yellow zone today as pt feels anxious, forgetful, scattered, and excited today. Pt reports spending time listening to music, as well as finding ways to move her body will help pt get out of the yellow zone today. Benefited from increased education on zones of regulation or stages of alertness for emotions and healthy coping skills to use for each zone. Pt will IOP tx to increase mood stability, reduce distorted thinking, and improve healthy habits. ? Narrative Note: []
--- NOTE | 2022-05-22 13:36 | BH.MDN_ITS ---
Multi-Disciplinary Note - Note 30-min Individual Time Started:: 12:05 Date: 05/22/22 Purpose of session/treatment goals addressed:: Purpose of session was to address goals 1 and 2 from MTP. Eye Contact:: Good Motor Activity:: Restless Appearance:: Casual Speech:: Rambling, Rapid Mood:: Euthymic Affect:: Full Thoughts:: Racing, No evidence of hallucinations/delusions noted Staff Interventions:: thought challenging, CBT techniques, strengths perspectiv e, goal setting, taught coping skills Client Response:: Client reported her mood has been improved in the last few days, but has been feeling more tired lately. Client stated she is having a harder time getting out of bed in the morning. Client reported the time change, one of her medications being increased, and running out of her ADHD medications could all be contributing to increased tiredness and decreased motivation to get out of bed. Client reported she has been having a harder time shutting her phone off at night and was scrolling on her phone until after 3am. Discussed strategies to help improve nighttime and morning routine. Client agreeable it could be helpful if she puts her phone across her bedroom so she has to get up in the morning when the alarm goes off. Client reported she does have a few of her ADHD four hour pills left that she has been saving for the beginning of her work shift. Client stated she does notice her mood is brighter when she is off her medications, however does have a harder time staying on task and is more forgetful. Client reported at work she has been forgetting little tasks she supposed to do at the end of her shift. Client receptive to idea of creating checklist of what needs to be completed at work. Client states she will contact her PCP office to get appointment for her ADHD medication refill. Reported her current psychiatrist will not prescribe medication until client completes ADHD assessment through psychiatry office. Risks/Concerns:: denies suicidal ideation, plan or intention to date. future oriented. Progress Toward Goals/Plan:: Progress noted by client reported improved mood, decreased anxiety, and improved daily functioning. Client not being on her ADHD medication is starting to cause some issues with sleep, getting out of bed in the morning, and forgetfulness at work. If client doesn't go to her PCP appointment to get medication refill it could impact her work performance. Client is to continue IOP to maintain gains, continue use of healthy coping skills, and prevent decompensation. Time Stopped:: 12:35
--- NOTE | 2022-05-29 10:10 | BH.SGPN.GN ---
Behaviors/Verbalizations/Mental Status: [] Eye contact is good. Motor activity is appropriate. Appearance is casual. Speech is Appropriate. Mood is euthymic. Affect is full. Thoughts are linear and logical. No evidence of psychosis. Client Response/Progress/Benefit: [] Pt was an active participant in group discussion. Attentive during psychoeducation on different types of anxiety disorders. Along with peers provided insight on the definition of anxiety as well as the impact of anxiety which includes: poor sleep, not completing tasks, poor concentration, impacts relationships, impacts work, and decreases appetite. Pt identified her physical symptoms of anxiety which are fidgety, shortness of breath, butterflies in stomach, and tunnel vision. Worked with peers to identify safety behaviors which included perfectionistic qualities to try and control things to manage anxiety. Benefited from increased insight and awareness from group discussions. Pt to continue IOP to increase healthy coping skills, challenge distorted thoughts, and prevent decompensation.
--- NOTE | 2022-05-29 14:50 | BH.MDN ---
Multi-Disciplinary Note - Note 45-min Individual Time Started:: 11:25 Date: 05/29/22 Purpose of session/treatment goals addressed:: Purpose of session was to address goals 1 and 2 from MTP. Eye Contact:: Good Motor Activity:: Restless Appearance:: Casual Speech:: Rapid Mood:: Euthymic Affect:: Full Thoughts:: Racing Staff Interventions:: motivational interviewing, CBT techniques, strengths perspective, goal setting, taught coping skills - ADHD management strategies Client Response:: Client reported she missed group earlier this week because had hard time getting out of bed. Client stated she also has been running late and missing group because she doesn't want to be discharged from [facility]. Client reported she thought if she kept missing occasionally it would extend her time in IOP. Client stated IOP provides support, socialization, and routine for her throughout the week and is worried she will revert back to old ways once the program ends. Therapist explained if client continues to no show/cancel IOP it would lead to her early discharge from the program which is not what client wants. Client expressed understanding she needs to consistently attend the days she signs up for. Client agreed it would be helpful to identify a new routine for when IOP is over. 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 Client reported if she doesn't go to the gym she can go for a walk or do something active at home. Client reported she will think about other options for her routine over the weekend. Client reported mood continues to be improved. Client reported not having her ADHD medications does negatively impact her at work with increased boredom, decreased concentration, and decreased motivation. Discussed strategies that can help with management of ADHD symptoms. Client reported she has appointment scheduled on 06/04 with her PCP to get script for her ADHD medication. Risks/Concerns:: Denies suicidal ideation, plan or intention to date. future focused. Progress Toward Goals/Plan:: Progress noted with client reporting improved mood, decreased anxiety, and ability to manage emotions more effectively in the moment. Client utilizing strategies like making to do list at work to help her manage her ADHD symptoms while unmedicated. Client has been struggling with getting out of bed in the last couple of weeks and has missed or shown up late to IOP. Client is to continue IOP to increase consistent use of healthy coping, challenge distorted thoughts, and prevent decompensation. Time Stopped:: 12:10
--- NOTE | 2022-06-03 09:00 | BH.SGPN.GN ---
Behaviors/Verbalizations/Mental Status: []Eye contact good, casually dressed, motor activity appropriate, speech normal rate and tone, mood anxious and euthymic, congruent affect, thoughts linear and intact, no evidence of delusions or hallucinations. Reviewed pt's symptom tracker, denies any suicidal ideation, plan, or intent as of this date 06/03/22. Client Response/Progress/Benefit: []Pt responded well to session, attentive and willing to share with the group. Pt reports feeling ?satisfied this morning. Expressed she has been actively making strides towards improving her mental health through healthy skill application, thought challenging, and continuing to attend tx. Expressed fears about maintaining gains made following IOP discharge, but did well to identify strategies for doing so. Pt appeared to benefit from supportive feedback and reflecting on mental health wins, as well as skills he can use to increase confidence. Pt to continue IOP tx to further improve healthy boundaries, coping implementation, improve mood stability, and prevent decompensation. Narrative Note: []
--- NOTE | 2022-06-03 10:10 | BH.SGPN.GN ---
Behaviors/Verbalizations/Mental Status: []Pt alert and oriented, casually dressed and groomed. Eye contact good. Motor activity appropriate. Speech sarcastic at times. Affect congruent, mood euthymic. Thoughts linear, logical, no signs of hallucinations or delusions. Client Response/Progress/Benefit: []Pt participated at times during group discussions. Attentive during psychoeducation on communication styles. Participated during interactive discussion on obstacles to effective communication which included; giving the silent treatment, assumptions, and communicating through behaviors. Pt was placed in small group and was engaged in identifying benefits and consequences of each communication style. Pt reports connecting most with the passive communication style. Pt can see how this style leads to worsening anxiety and overthinking. Benefited from increased understanding of communication styles and the impact they have on mental wellness. Will continue in IOP to increase impulse control and distress tolerance skills while improving daily functioning. ?? Narrative Note: []
--- NOTE | 2022-06-03 11:10 | BH.SGPN.GN ---
Behaviors/Verbalizations/Mental Status: []Client alert and oriented, casually dressed and groomed. Eye contact good. Motor activity appropriate. Speech within normal limits. Affect full, mood euthymic. Thoughts linear, logical, no signs of hallucinations or delusions. Client Response/Progress/Benefit: []Client responded well to session AEB client listening attentively to others and providing input during group discussion on the pay offs and costs of the different communication styles. Client recognizes she often utilizes passive communication to avoid conflict at all costs. Client stated being passive results in her needs not being met and having to do things she really doesn't like doing. Client attempted to be assertive during activity, however struggled with active listening to peers to accomplish task. Attentive during psychoeducation on assertive communication and I statements. Client seemed to benefit from increasing awareness of healthy strategies to improve communication. Client will continue IOP tx to increase consistent use of healthy coping skills and prevent decompensation. Narrative Note: []
--- NOTE | 2022-06-03 12:19 | PCM.BH.PN_ITS ---
Progress Note Progress Note: And history of Present Illness/Interim History: [] The patient is a 21-year-old female with a history of depression, anxiety and PTSD and ADHD who is seen in follow-up at the [facility] behavioral health IOP program. I last saw the patient about 1 month ago due to her inconsistent attendance. The patient's outpatient provider did see the patient recently and her Prozac was increased 1st-15 milligrams p.o. daily and then increased to 20 mg p.o. daily around May 21, 2022. The patient states that she is tolerating the increased dose well and in the past few days she feels she has noticed her anxiety decreasing. She states that the other day she was able to drive for the first time without her hands feeling sweaty at the wheel and she was much more relaxed while driving. People who know her say that she is more positive lately and her demeanor. She feels she is learning skills in the IOP program. She denies any hopelessness now. She denies any cutting. She denies passive thoughts of , suicidal ideation, homicidal ideation, hallucinations or delusions or plan for suicide. She ran out of her Adderall several weeks ago as she did not keep scheduled appointments with her PCP. Current Psychiatric Medications: [] Prozac 20 mg p.o. daily (2 weeks on this dose now); AdderallXR 25 mg every morning (ran out of this several weeks ago) Mental Status Examination: [] The patient is a 21-year-old female who appears normal for stated age and is casually dressed and groomed with good hygiene. Eye contact is good and she is ambulatory with a normal gait. She has no psychomotor agitation or retardation. She is cooperative and pleasant during the interview. Speech is normal rate and rhythm and fluent with no pressure. Mood is depressed. Affect is euthymic. Thought process is goal- directed and organized. Thought content: There is no evidence of passive thoughts of , passive or active suicidal ideation, plan for suicide, homicidal ideation, hallucinations or delusions. Reality testing is intact. Judgment is intact. Impulsivity is moderate. Insight is good. Diagnoses: [] 1. Major depressive disorder, recurrent, severe without psychosis (resolving) 2. Generalized anxiety disorder 3. ADHD 4. Primary support and school issues Plan: [] The patient will continue the IOP program at [facility] as the structure, support, education and group therapy will hopefully prevent worsening of the patient's symptoms. She felt safe during the interview and if it anytime she does not feel safe she will let us know or go to the emergency room. The risks, options, possible complications and side effects of the medication were again discussed with the patient and she understands and accepts these. No medication changes were made today. The patient has a planned evaluation for ADHD that her outpatient psychiatric provider ordered. The patient the patient will continue to follow-up with her outpatient providers and I will see the patient in follow-up in 2 to 3 weeks.
== END 2022-06-03 23:59 ==
LOC: BHIOP 08:11
PROVIDERS: PCP Pediatrics; Referring Provider Psychiatry & Neurology Psychiatry; Visit Provider Psychiatry & Neurology Psychiatry
DX: F33.2 Major depressive disorder, recurrent severe without psychotic features (principal); F41.1 Generalized anxiety disorder; F90.9 Attention-deficit hyperactivity disorder, unspecified type
CPT/HCPCS: S9480; 90832; 90853

== ENCOUNTER 2022-06-04 08:19 | Outpatient (RCR) | payer BC, OTHER, SELFPAY ==
[2022-06-04 00:36] VITALS: BP 127/74; PULSE 60
--- NOTE | 2022-06-04 09:10 | BH.SGPN.GN ---
Behaviors/Verbalizations/Mental Status: [] Eye contact is good. Motor activity is appropriate. Appearance is disheveled. Speech is Appropriate. Mood is anxious. Affect is congruent. Thoughts are linear and logical. No evidence of psychosis. Reviewed daily check in sheet and no reports of suicidal ideations or intent. Client Response/Progress/Benefit: [] Pt was an active participant in group discussions. Attentive. Daily symptom tracker notes 25 for depression and /5 for anxiety. ?Emotion for today is tired. Rodati win was making it to group on time this AM. Also shared that she began to mend a previous relationship last night and ?it went well?. 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 Discussed how these appointments are very difficult as she feels vulnerable during the exam. Benefited from group support, encouragement, and feedback. Will continue in IOP to maintain safety, prevent decompensation, and increase healthy coping skills. Narrative Note: []
--- NOTE | 2022-06-04 10:10 | BH.SGPN.GN ---
Behaviors/Verbalizations/Mental Status: []Pt alert and oriented, casually dressed and groomed. Eye contact good. Motor activity appropriate. Speech within normal limits. Affect constricted, mood euthymic and anxious. Thoughts linear, logical, no signs of hallucinations or delusions. Client Response/Progress/Benefit: []Pt responded well to session, contributing to discussion and engaged during the activity. Group identified the benefits of change which included: less stress, healthier wellbeing, and better mental health. Worked with the group to identify barriers to change and pt identified personal barriers as ?not knowing you?re the problem? and lack of motivation. Pt participated along with group in activity where they identified and discussed the emotions related to change. Pt participated in discussion on the change process and personal experiences with implementing change in past. Benefited from increased awareness and understanding of emotions, benefits, and barriers related to change. Will continue IOP tx to increase use of healthy coping skills, monitor medications, and improve daily functioning. ? Narrative Note: []
--- NOTE | 2022-06-04 11:10 | BH.SGPN.GN ---
Behaviors/Verbalizations/Mental Status: []Pt alert and oriented, casually dressed and groomed. Eye contact good. Motor activity appropriate. Speech within normal limits. Affect congruent, mood euthymic and anxious. Thoughts linear, logical, no signs of hallucinations or delusions. Client Response/Progress/Benefit: []Pt responded well to session, attentive. Did well to process activity and work with group to relate the strategies used to overcome barriers in the activity to managing change in own life. Pt also recognized how managing her anxiety helped pt be successful in the activity. Pt identified wanting to create a daily routine to keep busy and avoid sleeping in her free time. Pt feels she is in the preparation stage and her barriers are lack of motivation and energy, but pt is going to work on setting a small goal each morning. Appeared to benefit from identifying a small goal to work towards. Pt will continue IOP tx to improve mood stability and monitor medications. ?? Narrative Note: []
--- NOTE | 2022-06-05 09:00 | BH.SGPN.GN ---
Behaviors/Verbalizations/Mental Status: []Pt alert and oriented, casually dressed and groomed. Eye contact good. Motor activity appropriate. Speech within normal limits. Affect congruent, mood euthymic and anxious. Thoughts linear, logical, no signs of hallucinations or delusions. Reviewed pt?s symptom tracker, no risk for suicidal ideation, plan, or intent as of 06/05/22 Client Response/Progress/Benefit: [] Pt responded well to session, giving supportive feedback to peers and engaged throughout. Pt reports feeling tired and happy this morning as pt is noticing changes in her mood and she is getting recognition at work. Pt was vulnerable and shared that feeling better has triggered negative thinking that I'm being fake which is making pt second guess her progress. The group gave pt emotional support and helped pt challenge her negative thinking. Pt reports she has been using healthy skills, but she worries about maintenance. Pt appeared to benefit from challenging distortions. Pt will continue IOP tx to promote mood stability and increase consistent use of skills. Narrative Note: []
--- NOTE | 2022-06-05 10:15 | BH.SGPN.GN ---
Behaviors/Verbalizations/Mental Status: [] Eye contact is good. Motor activity is appropriate. Appearance is disheveled. Speech is Appropriate. Mood is anxious. Affect is congruent. Thoughts are linear and logical. No evidence of psychosis. Client Response/Progress/Benefit: [] Pt was an active participant in group discussions and activities. Attentive during psychoeducation. Pt participated during interactive discussion in which the group defined self-care and discussed its benefits. Worked with peers to identify myths related to self-care which included; Self-care is expensive and lavish, self-care is just personal hygiene, self-care means I'm not being productive, self-care should be fun, self-care is too time consuming. Pt participated in small groups where they worked to bust these self-care myths. Pt did well to relate experiential activity to the topic of self-care and its benefit to mental health. Benefited from increased awareness of self-care, its benefits, and the consequences of not utilizing self-care strategies. Will continue in IOP to prevent decompensation, stabilize mood, and increase healthy coping. Narrative Note: []
--- NOTE | 2022-06-05 11:15 | BH.SGPN.GN ---
Behaviors/Verbalizations/Mental Status: []Pt alert and oriented, casually dressed and groomed. Eye contact good. Motor activity appropriate. Speech within normal limits. Affect congruent, mood euthymic. Thoughts linear, logical, no signs of hallucinations or delusions. Client Response/Progress/Benefit: []Pt engaged participant AEB completing self-assessment worksheet and providing input throughout discussion. At times distracted by self-own thoughts, but easily redirected. Participated in group discussion on the various areas of self-care. Pt completed worksheet identifying current self-care practices and what self-care activities pt wants to start using. Pt selected physical and financial self-care to begin practicing more consistently. Pt plans to do this by challenging herself to eat out less often. Appeared to benefit from completing the self-care evaluation and gaining insights into current self-care practices, as well as identifying areas in which he would like to improve upon. Will continue IOP tx to prevent decompensation, improve communication with supports, and improve ability to maintain mood stability. Narrative Note: []
--- NOTE | 2022-06-10 11:10 | BH.SGPN.GN ---
Behaviors/Verbalizations/Mental Status: [] Client alert and oriented, casually dressed and groomed. Eye contact good. Motor activity appropriate. Speech within normal limits. Affect congruent, mood euthymic. Thoughts linear, logical, no signs of hallucinations or delusions. Client Response/Progress/Benefit: [] Client was an active participant in group discussions and activity. Attentive during psychoeducation. Client along with peers were able to identify several negatives on the picture given to the group. Client and peers also identified positives in the picture and made the connect that finding positives is much more difficult. Interactive discussion on the definition of perspective, how perspective is formed, and why perspective is important in treatment. Client along with peers also identified that perspective can either motivate and encourage treatment or be a barrier to receiving help. Client shared currently she has a hopeful perspective. Reported this has helped her do the hard things she would have avoided in the past. Stated having a hopeful perspective also helps her use skills in stressful environments. Will continue in IOP to continue use of healthy coping, challenge distorted thoughts, and prevent decompensation.
--- NOTE | 2022-06-10 11:16 | BH.SGPN.GN ---
Behaviors/Verbalizations/Mental Status: []Client alert and oriented, casually dressed and groomed. Eye contact good. Motor activity appropriate. Speech within normal limits. Affect congruent, mood anxious and euthymic. Thoughts linear, logical, no signs of hallucinations or delusions Client Response/Progress/Benefit: []Client was attentive and contributed in small and larger group discussion. Client completed strengths exploration worksheet and identified personal strengths of leadership, open mindedness, and empathy. Client able to acknowledge how these strengths are helping her and can continue to help client in her mental health journey. Shared wanting to focus on journaling in the third person point of view to reinforce her strength of empathy. Benefited from identifying personal strengths and strategies for enhancing use of identified strengths. Client to continue IOP tx to promote use of healthy coping skills, increase mood stability, and prevent decompensation. Narrative Note: []
--- NOTE | 2022-06-11 10:01 | BH.SGPN.GN ---
Behaviors/Verbalizations/Mental Status: [] Client alert and oriented, casually dressed and groomed. Eye contact good. Motor activity appropriate. Speech within normal limits. Affect congruent, mood euthymic. Thoughts linear, logical, no signs of hallucinations or delusions. Client Response/Progress/Benefit: [] Client responded well to session AEB taking notes throughout and listening attentively to others. Client was attentive throughout group activity identifying famous individuals and how they overcame failure to be successful. Client helped group identify how fear of failure can impact mental health and relationships. Client personally identified that her anxiety contributes to her fear of failure. Client participated in experiential activity, working with group members to problem solve. Appeared to benefit from increased knowledge of fear of failure. Will continue IOP tx to increase use of coping skills, reduce distorted thinking patterns, and improve overall functioning. Narrative Note: [] Behaviors/Verbalizations/Mental Status: [] Client alert and oriented, casually dressed and groomed. Eye contact good. Motor activity appropriate. Speech within normal limits. Affect constricted, mood euthymic. Thoughts linear, logical, no signs of hallucinations or delusions. Client Response/Progress/Benefit: [] Client responded well to session AEB taking notes throughout and listening attentively to others. Client was attentive throughout group activity identifying famous individuals and how they overcame failure to be successful. Client helped group identify how fear of failure can impact mental health and relationships. Client personally identified that her anxiety contributes to her fear of failure. Client participated in experiential activity, working with group members to problem solve. Appeared to benefit from increased knowledge of fear of failure. Will continue IOP tx to increase use of coping skills, reduce distorted thinking patterns, and improve overall functioning. Narrative Note: []
--- NOTE | 2022-06-11 11:01 | BH.SGPN.GN ---
Behaviors/Verbalizations/Mental Status: [] Client alert and oriented, casually dressed and groomed. Eye contact good. Motor activity appropriate. Speech within normal limits. Affect congruent, mood euthymic. Thoughts linear, logical, no signs of hallucinations or delusions. Client Response/Progress/Benefit: [] Client responded well to session, engaged in the experiential activity and attentive throughout group processing. Client completed fear of failure worksheet and was able to identify thoughts and behaviors that reinforce personal fear of failure including fear of embarrassment, unknowns, and shutting down.. Client participated in small group discussion regarding strategies to overcome fear of failure. Identified mindfulness, finding the dutton, and small steps. Appeared to benefit from increased knowledge of strategies to combat fear of failure and gaining self-awareness. Client will continue IOP tx to increase utilize learned coping skills and increase overall functioning. Narrative Note: []
--- NOTE | 2022-06-12 10:05 | BH.SGPN.GN ---
Behaviors/Verbalizations/Mental Status: []Eye contact is good. Motor activity is appropriate. Appearance is casual and grooming tended to. Speech is Appropriate. Mood is euthymic. Affect is congruent. Thoughts are linear and logical. No evidence of psychosis. Client Response/Progress/Benefit: []Client receptive of session, actively engaged throughout AEB taking notes and providing input and examples to discussion. Appeared to connect with group topic of cognitive distortions and the impact of thought patterns on mental health, coping behaviors, and relationships. Reflected that she personally tends to struggle with distortions of personalization, disqualifying the positives, and all or nothing thinking. Shared an example of past all or nothing thinking as ?My room is messy and unless I can clean the whole thing then it isn?t worth trying to clean any of it?. Client appeared to benefit from gaining insight on distorted thinking patterns and how this impacts overall mental health. Progress noted in client report of improved insight into her own distorted thinking patterns. Will continue IOP tx to maintain mood stability and continue to promote healthy coping, as well as continue to encourage medication compliance. Narrative Note: []
--- NOTE | 2022-06-12 11:10 | BH.SGPN.GN ---
Behaviors/Verbalizations/Mental Status: [] Eye contact is good. Motor activity is appropriate. Appearance is casual. Speech is Appropriate. Mood is euthymic, slightly anxious. Affect is full. Thoughts are linear and logical. No evidence of psychosis. Client Response/Progress/Benefit: [] Pt was an active participant in the group activity which involved working with peers to answer questions related to psychoeducation on cognitive distortions. Client engaged in activity in which group would practice identifying cognitive distortions, reframing cognitive distortions, and examples of distortions. Therapist used activity to reinforce psychoeducation and to help client retain the information through examples and practicing. Pt was engaged in the game and with peers on collaborating to determine the answers. Pt stated would like to work on continuing to practice recognizing distorted thoughts and practice challenging the thoughts. Benefited from rehearsing ways to challenge/reframe cognitive distortions and by gaining increased insight into examples/definitions of 10 most common cognitive distortions. Will continue in IOP to maintain gains and prevent decompensation.
--- NOTE | 2022-06-12 14:20 | BH.MDN_ITS ---
Multi-Disciplinary Note - Note 30-min Individual Time Started:: 12:05 Date: 06/12/22 Purpose of session/treatment goals addressed:: Purpose of session was to address goals 1 and 2 from [facility]. Additionally focused on tentative discharge date. Eye Contact:: Good Motor Activity:: Restless Appearance:: Casual Speech:: Rapid Mood:: Euthymic Affect:: Full Thoughts:: Logical, Racing, No evidence of hallucinations/delusions noted Staff Interventions:: CBT techniques, discharge planning, strengths perspective, goal setting, other - reviewed healthy coping skills Client Response:: Pt reported she accomplished goal of following through with going to PCP and getting her ADHD medication script. Client stated she also made a phone calls to establish with an adult PCP and has appointment for ADHD testing at [place] [id number]. Client reported mood is continuing to be improved and has noticed decreased in her anxiety. Client stated she went to dinner with friends earlier in the week and was able to stay in the moment versus being worried abo ut everyone else. Client reported in the past she typically would be focused on her environment and how others were feeling instead of being able to enjoy herself. Client stated it did feel weird to just be in the moment and have fun. Client reported she is trying to adjust to not having the racing anxious thoughts everyday. Client stated she has decided next week when she drops down to 2 days she will go to yoga on the day she doesn't have IOP in the morning. Client reported she thinks it would be good for her to have a planned activity that is outside the house so it forces her to get moving instead of lying in bed until she has to go to work. Client expressed excitement to try creating a new routine and hopefulness it will be help. Client reported she is sad about discharging from [facility] but recognizes she is functioning better and her mood is significantly improved. Client stated her outpatient psychiatrist is willing to complete [facility] paperwork that will allow client to do [facility] Aftercare Program on . Client reported she believes that will help her maintain the progress she has made. Risks/Concerns:: Denies current suicidal/homicidal ideation, plan or intention to date. future focused. Progress Toward Goals/Plan:: Progress noted with pt reporting improved mood, decreased anxiety, and improved daily functioning. Client has been more social and engaging in activities outside her house. Plan is for client to discharge next week. She will drop down to 2 days for next week so she can practice creating a new routine on the day she will be off from IOP. Client expresses understanding and agreeable with plan. Time Stopped:: 12:35
--- NOTE | 2022-06-17 09:05 | BH.SGPN.GN ---
Behaviors/Verbalizations/Mental Status: [] Eye contact is good. Motor activity is appropriate. Appearance is casual. Speech is Appropriate. Mood is euthymic. Affect is full. Thoughts are linear and logical. No evidence of psychosis. Reviewed daily check in sheet and no reports of suicidal ideations or intent. Client Response/Progress/Benefit: [] Pt was an active participant in group discussions. Attentive. Emotion for today is ?chillin?. Mental health wins were spending the weekend with support. She shared a few stories over the weekend which made her smile. Not isolating as much which has improved her mental health. Utilizing healthy self-care and coping skills (yoga and journaling). ?I hope I stick with it?. Her stressor is that she is getting discharged from [facility] this week. Benefited from group support, encouragement, and feedback. Will continue in [facility] to maintain gains and prevent decompensation. Narrative Note: []
--- NOTE | 2022-06-17 10:10 | BH.SGPN.GN ---
Behaviors/Verbalizations/Mental Status: []Pt alert and oriented, neatly dressed and groomed. Eye contact fair. Motor activity appropriate. Speech within normal limits. Affect congruent, mood euthymic and tired. Thoughts linear, logical, no signs of hallucinations or delusions. Client Response/Progress/Benefit: []Pt was an active participant in group discussions. Participated with peers in experiential activity. Pt participated in an interactive discussion with peers in which they worked together to define what coping skills are. Group then identified unhealthy coping skills which included; isolating, sleeping to avoid, drugs and alcohol, and overcommitting. Pt displayed insight that she struggles with wanting to face stressful or uncomfortable situations, which leads to unhealthy coping like avoidance. Reflected that this adds more stress to pt?s life and worsens mental health symptoms. Benefited from increased awareness and education the benefits of having a healthy coping repertoire and consequences of unhealthy coping on mental health and relationships. Will continue in IOP to further promote mood stability and reinforce healthy coping skills. Narrative Note: []
--- NOTE | 2022-06-17 11:10 | BH.SGPN.GN ---
Behaviors/Verbalizations/Mental Status: []Client alert and oriented, casually dressed and groomed. Eye contact good. Motor activity appropriate. Speech within normal limits. Affect congruent, mood euthymic. Thoughts linear, logical, no signs of hallucinations or delusions Client Response/Progress/Benefit: []Client responded well to session, taking notes and contributing. Group discussed the different categories of coping skills which included distraction, emotional release, grounding, self-love, and thought challenging. Client participated in creating a coping skills ?menu? from the five categories of coping skills. Client's coping skill menu included: yoga, continuing therapy, assertive communication, setting boundaries, and challenge negative perspective. Appeared to benefit from increasing repertoire of healthy coping skills. Will continue IOP to continue use of healthy coping skills and prevent decompensation.
--- NOTE | 2022-06-19 14:31 | BH.DS_ITS ---
Discharge Summary - Demographics Date of Admission:: 04/22/22 Discharge Date: 06/19/22 Presenting Problems at Admission:: The patient is a 21-year-old single female with a history of depression, anxiety, PTSD and ADHD who referred herself to the [facility] behavioral health IOP program for worsening symptoms of anxiety and depression. She wants to get FMLA off from her job so she can participate more fully in the IOP program. Endorses significant social anxiety which makes it difficult to go in public and or talk to others. Endorses depressed mood with crying episodes, anhedonia, increased sleep, low energy, decreased concentration, and feelings of hopelessness and worthlessness. Hx of self-harm, last cut one month ago. MH symptoms were interfering with pt?s ability to get to work on time. Discharge Diagnoses:: 1. F33.2 Major depressive disorder, recurrent, severe without psychosis (resolving). 2. Generalized anxiety disorder. 3. ADHD Reason for Discharge:: Pt has made significant treatment progress since starting IOP and no longer meets criteria for IOP level of care. - Treatment Progress During Treatment & Response: Per pt's DSM 5 symptom tracker her scores indicate a 67% reduction in depression, 82% reduction in anxiety, and an overall 78% reduction in mental health symptoms when compared to pt's intake DSM 5 scores. Pt reports improved ability to manage mental health symptoms which has helped her increase socialization and improved performance at work. Pt responded well to treatment AEB consistent attendance, contributions during group session, and follow through on applying skills outside treatment environment. Issues Still to be Addressed:: Pt could benefit from continue reinforcement of h ealthy coping skills, increase skill set to manage ADHD symptoms when not taking medication, and continued encouragement to socialize. Discharge Recommendations/Instructions:: Pt is recommended to continue outpatient therapy and psychiatry through [place] [id number] in [place]. Pt is to start [facility] Aftercare next week on 06/25. Discharge Handout: Complete Discharge Handout with client on aftercare options and continuity of care.
--- NOTE | 2022-06-19 14:53 | BH.MDN_ITS ---
Multi-Disciplinary Note - Note 30-min Individual Time Started:: 09:30 Date: 06/19/22 Purpose of session/treatment goals addressed:: Purpose of session was to discuss progress, complete maintenance plan and solidify aftercare plans. Eye Contact:: Good Motor Activity:: Appropriate Appearance:: Casual Speech:: Appropriate Mood:: Euthymic Affect:: Full Thoughts:: Linear, Logical, No evidence of hallucinations/delusions noted Staff Interventions:: CBT techniques, discharge planning, strengths perspective, reviewed DSM-5 Client Response:: Client reported following through with goal from last week to attend a yoga class in the morning to help get her out of bed and moving prior to going into work in the afternoon. Client stated she really enjoyed going to the class and found it helpful to have something scheduled which motivated her to get a bed in the morning. Client reported she joined the yoga studio for a month and will continue to attend classes in the morning to help her get moving. Client reported relief that her [facility] paperwork has been figured out so that she can do the [facility] aftercare program on . Client reported she is in a significant progress since starting IOP. Client stated her anxiety is still there occasionally but decrease intensity and frequency with ability to manage anxious thoughts and feelings. Client stated since her anxiety has decreased she believes it has had a positive interaction in decreasing her depressive symptoms. Client reported she is no longer sleeping all day waking up going to work and then repeating that throughout her week. Client stated she is more social which has dramatically helped her mood. Client reports she started journaling which has also helped with focusing on the positive and brain dumping and the anxious thought she might have. Client worked with therapist to complete maintenance plan in which she identified triggers, warning signs, self-care activities, and healthy coping skills. Client reports she is established with outpatient psychiatry, counseling, and will be starting the aftercare program next week. Risks/Concerns:: Denies current suicidal ideation, plan, and intention. Future focused. Progress Toward Goals/Plan:: Client has made significant treatment progress as evidenced by DSM-V scores at discharge. Client's DSM-V scores indicate a 67% decrease in depression, 100% decrease in anger, 82% decrease in anxiety, and an overall 78% decrease in symptoms. Client reports improved ability to manage anxiety and depressed symptoms. Client has established a new routine to help her get out of bed and is being more social. Plan is for client to discharge from [facility] today and follow up with her outpatient providers. Client has appointment scheduled with her outpatient therapist on June 15 at [place] [id number] and is also scheduled to meet with her medication prescriber at [place] [id number] next week. Time Stopped:: 10:00
== END 2022-06-19 13:11 | disposition home or self-care (01) ==
LOC: BHIOP 08:19
PROVIDERS: PCP Pediatrics; Referring Provider Psychiatry & Neurology Psychiatry; Visit Provider Psychiatry & Neurology Psychiatry
DX: F33.2 Major depressive disorder, recurrent severe without psychotic features (principal); F41.1 Generalized anxiety disorder; F90.9 Attention-deficit hyperactivity disorder, unspecified type
CPT/HCPCS: S9480; 90832; 90853

== ENCOUNTER → 2024-01-28 | Outpatient (CLI) | payer OTHER, SELFPAY ==
[2024-01-28 17:37] LABS: Internal QC Validated? YES +Cl - CLEAR BKGD; Pregnancy, Urine Negative Negative
== END | disposition home or self-care (01) ==
LOC: MTLAB 14:05
PROVIDERS: PCP Pediatrics; Referring Provider Nurse Practitioner Family; Visit Provider Nurse Practitioner Family
DX: L70.0 Acne vulgaris (principal); L90.5 Scar conditions and fibrosis of skin; Z79.899 Other long term (current) drug therapy
CPT/HCPCS: 81025